=== PATIENT | male | born 1995 | race Caucasian/White ===

== ENCOUNTER → 2021-08-22 16:55 | Outpatient (BNVA) | payer MEDICAID, SELFPAY | PROVIDERS: PCP Family Medicine; Visit Provider Family Medicine | DX: Z00.00 Encounter for general adult medical examination without abnormal findings (principal) | CPT/HCPCS: 80053; 82306; 84443; 85025 ==

== ENCOUNTER 2021-08-30 15:02 | Outpatient (CLI) | payer MEDICAID, SELFPAY ==
[2021-08-30 16:03] LABS: Bilirubin Urine 1+ (Negative); Blood Urine Neg (Negative); Glucose Urine UA Norm (Normal); Ketones Urine 1+ (Negative); Nitrate Urine Negative (Negative); Protein Urine Neg (Negative); Urine Appearance Hazy (CLEAR); Urine Color Amber (Yellow); Urobilinogen Urine Norm (Negative); pH Urine 8 (5-7)
[2021-08-30 16:04] LABS: Add Urine Culture? No; Add Urine Microscopic? YES; Bacteria Urine TRACE /hpf; Leukocyte Esterase Urine Trace (Negative); Mucus Urine 2+ /hpf; RBC Urine 0-4 /hpf (0-2); Squamous Epithelial Cell Urine 0-4 /hpf (0-5); WBC Urine 0-4 /hpf (0-5)
== END 2021-08-30 15:03 | disposition home or self-care (01) ==
PROVIDERS: PCP Family Medicine; Visit Provider Family Medicine
DX: R50.9 Fever, unspecified (principal)
CPT/HCPCS: 81001

== ENCOUNTER 2023-08-08 10:19 | Emergency (ER) | payer MEDICAID, SELFPAY ==
[2023-08-08 10:27] VITALS: BP 102/62; PULSE 67; RESP 14; TEMP 36.6; O2SAT 95; BMI 24.2
[2023-08-08 10:28] VITALS: BP 102/62; PULSE 75; RESP 14; O2SAT 96
--- NOTE | 2023-08-08 10:51 | W.ED.WOUNDLC ---
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 Due to positioning he has developed a pressure ulcer on the right flank they have been treating at home with in conjunction with home health care nurse. He has been present for a couple of months now. It is not healing and was directed to the emergency room for further evaluation today did report a fever at home. Onset (ago): month(s) Associated symptoms: Denies chills or fever(s) Review of Systems Const: Denies: fever(s) or chills Card: Denies: chest pain Resp: Denies: dyspnea GI: Denies: abdominal pain : Denies: dysuria, urinary frequency or urinary urgency Musc: Denies: neck pain or back pain Skin/Breast: Denies: rash PFSH ED PFSH: Social History Smoking and tobacco/nicotine status: never used tobacco/nicotine Alcohol intake: never Substance/Drug Use: never Physical Exam Const: GENERAL APPEARANCE: cooperative and comfortable ORIENTATION/CONSCIOUSNESS: Yes awake HENMT: COMMON NORMALS: normocephalic, atraumatic and hearing grossly normal bilaterally HEAD & SCALP: normocephalic and atraumatic Resp: COMMON NORMALS: normal respiratory effort, No retractions, No use of accessory muscles and clear to auscultation bilaterally AUSCULTATION: clear to auscultation bilaterally Cardio: COMMON NORMALS: regular rate, regular rhythm and No murmurs present (Cardio) RATE: regular rate RHYTHM: regular rhythm GI: COMMON NORMALS: Soft to palpation and No hepatosplenomegaly present AUSCULTATION: Yes normoactive bowel sounds PALPATION: Yes Soft to palpation, No Tenderness to palpation present (GI), No Guarding due to palpation present (GI) and Yes No hepatosplenomegaly present Extremity: COMMON NORMALS: normal to inspection, capillary refill normal, no clubbing, cyanosis or edema, no calf tenderness and no pedal edema Skin: OTHER: Pressure ulcer on right flank between lower ribs and superior iliac crest is tunneling serous drainage at this time. Localized redness. Course Vital Signs: Vital signs: Vital Signs Temperature 97.8 F 08/08/23 10:27 Pulse Rate 83 08/08/23 13:00 Respiratory Rate 14 08/08/23 10:28 Blood Pressure 102/62 08/08/23 10:28 Pulse Oximetry 97 08/08/23 13:00 Oxygen Delivery Me thod Mechanical Ventil ation 08/08/23 13:00 MDM - Wound/Laceration Medical Decision Making Patient does have a pressure ulcer that is developed because of positioning appears to be compression between his lower ribs on the right and his superior pelvic crest. There is no abscess or drainage at this time at some point it may require debridement but is not requiring debridement at this time and there is no abscess on the CT. White count is normal. I did call and discussed with his primary. We will discharge patient home set him up for outpatient wound care clinic return if has further problems. Started on Bactrim for now. Return if has fever. Medical Records I reviewed the patient's medical records. Lab Data I reviewed the patient's lab results. 08/08/23 10:45 08/08/23 10:45 Laboratory Results WBC 6.49 10^3/uL (3.29-11.43) 08/08/23 10:45 RBC 4.30 10^6/uL (3.85-5.65) 08/08/23 10:45 Hgb 13.60 g/dL (11.27-16.99) 08/08/23 10:45 Hct 41.0 % (37-53) 08/08/23 10:45 MCV 95.3 fl (82-101) 08/08/23 10:45 MCH 31.6 pg (27-33) 08/08/23 10:45 MCHC 33.2 g/dL (30-55) 08/08/23 10:45 RDW 13.2 % (12.1-15.1) 08/08/23 10:45 Plt Count 153 10^3/cmm (157-399) L 08/08/23 10:45 MPV 12.4 fL (7.4-10.4) H 08/08/23 10:45 Neut % (Auto) 63.3 % 08/08/23 10:45 Lymph % (Auto) 25.0 % 08/08/23 10:45 [place] % (Auto) 8.6 % 08/08/23 10:45 Eos % (Auto) 2.6 % 08/08/23 10:45 Baso % (Auto) 0.3 % 08/08/23 10:45 Neut # (Auto) 4.11 10^3/uL (1.8-7.7) 08/08/23 10:45 Lymph # (Auto) 1.6 10^3/uL (0.8-4.8) 08/08/23 10:45 [place] # (Auto) 0.6 10^3/uL (0.2-0.9) 08/08/23 10:45 Eos # (Auto) 0.2 10^3/uL (0.0-0.8) 08/08/23 10:45 Baso # (Auto) 0.0 10^3/uL (0.0-0.1) 08/08/23 10:45 Nucleated RBC % (auto) 0 % 08/08/23 10:45 Nucleated RBCs # 0.0 /100WBC 08/08/23 10:45 Sodium 141 mmol/L (136-145) 08/08/23 10:45 Potassium 3.7 mmol/L (3.5-5.1) 08/08/23 10:45 Chloride 108 mmol/L (98-107) H 08/08/23 10:45 Carbon Dioxide 24 mmol/L (22-29) 08/08/23 10:45 Anion Gap 12.7 (5-19) 08/08/23 10:45 BUN 15 mg/dL (6-20) 08/08/23 10:45 Creatinine 0.4 mg/dL (0.7-1.2) L 08/08/23 10:45 GFR Calculation 258.0 mL/min (90-130) H 08/08/23 10:45 Glucose 123 mg/dL (65-115) H 08/08/23 10:45 Calculated Osmolality 294 mOsm/kg (285-295) 08/08/23 10:45 Calcium 9.0 mg/dL (8.5-10.5) 08/08/23 10:45 Total Bilirubin 0.3 mg/dL (0.15-1.2) 08/08/23 10:45 AST 29 U/L (0-40) 08/08/23 10:45 ALT 39 U/L (0-41) 08/08/23 10:45 Alkaline Phosphatase 165 U/L (40-130) H 08/08/23 10:45 Total Protein 6.9 g/dL (6.6-8.7) 08/08/23 10:45 Albumin 3.5 g/dL (3.5-5.2) 08/08/23 10:45 Globulin 3.4 g/dL (1.3-4.6) 08/08/23 10:45 Urine Color Yellow (Yellow) 08/08/23 11:12 Urine Appearance Sl hazy (CLEAR) A 08/08/23 11:12 Urine pH 8 (5-7) H 08/08/23 11:12 Ur Specific [place] 1.010 (1.005-1.030) 08/08/23 11:12 Urine Protein Neg (Negative) 08/08/23 11:12 Urine Glucose (UA) Norm (Normal) 08/08/23 11:12 Urine Ketones Negative (Negative) 08/08/23 11:12 Urine Blood Neg (Negative) 08/08/23 11:12 Urine Nitrate Negative (Negative) 08/08/23 11:12 Urine Bilirubin Neg (Negative) 08/08/23 11:12 Prot Sulfosalicylic Acd Negative (Negative) 08/08/23 11:12 Urine Urobilinogen Norm mg/dL (Negative) 08/08/23 11:12 Ur Leukocyte Esterase Negative (Negative) 08/08/23 11:12 Urine RBC 0-4 /hpf (0-2) H 08/08/23 11:12 Urine WBC 0-4 /hpf (0-5) H 08/08/23 11:12 Ur Squamous Epith Cells 0-4 /hpf (0-5) H 08/08/23 11:12 Amorphous Sediment 3+ /hpf 08/08/23 11:12 Urine Bacteria Trace /hpf (NONE) 08/08/23 11:12 All radiology interpretation(s) finalized by discharge Discharge Plan Discharge Patient Disposition: Home Clinical Impression: Pressure ulcer, Scoliosis, Quadriplegia Condition: Stable Prescriptions: New sulfamethoxazole-trimethoprim 200-40 mg/5 mL suspension 20 ml PO BID 10 Days Qty: 400 0RF No Action cholecalciferol (vitamin D3) 125 mcg/mL (5,000 unit/mL) drops 125 mcg PO DAILY Qty: 59 5RF baclofen 5 mg/5 mL solution 10 mg .ROUTE .COMPLEX Qty: 60 5RF Rx Instructions: 10 mg/ml give 1 ML per G-tube twice daily famotidine 40 mg/5 mL (8 mg/mL) suspension See Rx Instructions .ROUTE .COMPLEX Qty: 150 4RF Dose Instruction: TAKE 2.5ML (20MG) BY MOUTH TWICE DAILY Rx Instructions: TAKE 2.5ML (20MG) BY MOUTH TWICE DAILY cetirizine 1 mg/mL solution See Rx Instructions .ROUTE .COMPLEX Qty: 450 0RF Dose Instruction: TAKE 5MLS BY MOUTH DAILY Rx Instructions: TAKE 5MLS BY MOUTH DAILY bisacodyl 10 mg suppository See Rx Instructions .ROUTE .COMPLEX Qty: 30 5RF Dose Instruction: INSERT RECTALLY EVERY DAY NEEDED FOR CONSTIPATION Rx Instructions: INSERT RECTALLY EVERY DAY NEEDED FOR CONSTIPATION ibuprofen 100 mg/5 mL suspension See Rx Instructions .ROUTE .COMPLEX Qty: 473 1RF Dose Instruction: TAKE 20MLS BY MOUTH EVERY 6 HOURS NEEDED FOR PAIN Rx Instructions: TAKE 20MLS BY MOUTH EVERY 6 HOURS NEEDED FOR PAIN acetaminophen [M-PAP] 160 mg/5 mL liquid 320 mg PO TID PRN (Reason: pain) Qty: 900 2RF clonazepam 0.5 mg tablet,disintegrating See Rx Instructions PO BID Qty: 800 3RF Rx Instructions: 0.1mg/ml suspension give 4ha=766eio in am and 7.1mp=688btr in the pm Discharge Orders: Discharge ED (Routine); Ordered 08/08/23 Ordered By: Tarik Carpio Referrals: Cesia Mcclendon MD [Primary Care Provider] - Discharge Diet: Usual diet Discharge Activity: Resume usual activity Patient Instructions: Opioid Safety, Pain Management Activity Restrictions/Additional Instructions: Case management make arrangements for you to have follow-up appointment with wound care. Recommend you start Bactrim. Coding Level of Care Code ED High Voltage Electrician for Margaret Caro
--- NOTE | 2023-08-08 10:53 | ECG_ITS ---
[facility] Test Date: 2023-08-08 Pat Name: Hal Fontana Department: Room: Gender: Male Shower Room Attendant: : 1995 Requested By: Tarik Guzmán Order Number: [id number] Luis Felipe MD: Regino Flores M.D. Measurements Intervals [place] Rate: 71 P: 37 LA: 140 QRS: 100 QRSD: 88 T: 26 QT: 372 QTc: 406 Interpretive Statements SINUS RHYTHM WITH MARKED SINUS ARRHYTHMIA BORDERLINE RIGHT AXIS DEVIATION [QRS AXIS > 90] NONSPECIFIC T-WAVE ABNORMALITY No previous ECG available for comparison Electronically Signed On 08-08-2023 11:58:03 CDT by Regino Flores M.D. [id number]
--- NOTE | 2023-08-08 11:00 | CT_ITS ---
WS: [id number] CT ABDOMEN PELVIS TECHNIQUE: Contrast-enhanced CT of the abdomen and pelvis with coronal and sagittal reformatted image s. CLINICAL INFORMATION: abd pain COMPARISON: None. DLP: 616.[address] scans at [facility] use at least one of these dose optimization techniques: automated e xposure control; mA and/or kV adjustment per patient size (includes targeted exams where dose is matc hed to clinical indication); or iterative reconstruction. FINDINGS: Gastrostomy tube. Advanced thoracolumbar scoliosis convex LEFT somewhat limits evaluation. Small RIGHT pleural effusion with compressive atelectasis and consolidation in the RIGHT lower lobe w ith air bronchograms. Trace LEFT pleural fluid. Recommend correlation for RIGHT lower lobe pneumonia. Normal liver. Normal portal vein and splenic vein. Adrenal glands are normal. Normal spleen. Small es ophageal hiatal hernia. Air-fluid level in the stomach. Normal abdominal aorta. Adrenal glands are no rmal. No hydronephrosis. Normal renal parenchymal enhancement. Sigmoid constipation. No evidence of h igh-grade small or large bowel obstruction. Diffuse bladder wall thickening. Tiny fat-containing umbilical hernia. Small amount of subcutaneous e alberto in the RIGHT subcutaneous mid lower back soft tissues. No drainable fluid collections. Chronic d ysplasia dislocation RIGHT hip. No other acute findings. IMPRESSION: 1. Small RIGHT pleural effusion with compressive atelectasis and consolidation in the RIGHT lower lo be anteriorly and medially with air bronchograms. Recommend correlation for pneumonia. 2. Gastrostomy tube in place. Air-fluid level in the stomach. 3. Sigmoid constipation. No evidence of high-grade small or large bowel obstruction. 4. Diffuse bladder wall thickening likely due to chronic cystitis. 5. Small amount of edema in the RIGHT mid and lower back soft tissues. No drainable fluid collection s. 6. Chronic RIGHT hip dysplasia and dislocation. 7. No other acute findings.
[2023-08-08 11:04] VITALS: PULSE 70; O2SAT 98
[2023-08-08 11:09] LABS: Basophils % 0.3 %; Eosinophils # 0.2 10^3/uL (0.0-0.8); Eosinophils % 2.6 %; Lymphocytes # 1.6 10^3/uL (0.8-4.8); Mean Corpuscular HGB Conc 33.2 g/dL (30-55); Mean Corpuscular Hemoglobin 31.6 pg (27-33); Mean Corpuscular Volume 95.3 fl (82-101); Mean Platelet Volume 12.4 fL (7.4-10.4); Monocytes # 0.6 10^3/uL (0.2-0.9); Monocytes % 8.6 %; Neutrophils # 4.11 10^3/uL (1.8-7.7); Neutrophils % 63.3 %; Nucleated Red Blood Cells % 0 %; Platelet Count 153 10^3/cmm (157-399); Red Cell Distribution Width 13.2 % (12.1-15.1); White Blood Count 6.49 10^3/uL (3.29-11.43)
[2023-08-08 11:19] LABS: Alanine Aminotransferase 39 U/L (0-41); Albumin Level 3.5 g/dL (3.5-5.2); Alkaline Phosphatase 165 U/L (40-130); Anion Gap 12.7 (5-19); Aspartate Amino Transferase 29 U/L (0-40); Blood Urea Nitrogen 15 mg/dL (6-20); Carbon Dioxide 24 mmol/L (22-29); Chloride 108 mmol/L (98-107); Globulin 3.4 g/dL (1.3-4.6); Glucose 123 mg/dL (65-115); Osmolality Calculated 294 mOsm/kg (285-295); Potassium 3.7 mmol/L (3.5-5.1); Sodium 141 mmol/L (136-145); Total Bilirubin 0.3 mg/dL (0.15-1.2); Total Protein 6.9 g/dL (6.6-8.7)
[2023-08-08 11:32] LABS: Urine Appearance SL Hazy (CLEAR); Urine Color Yellow (Yellow); pH Urine 8 (5-7)
[2023-08-08 11:33] LABS: Add Urine Culture? No; Add Urine Microscopic? YES; Amorphous Sediment Urine 3+ /hpf; Bacteria Urine TRACE /hpf; Bilirubin Urine Neg (Negative); Blood Urine Neg (Negative); Glucose Urine UA Norm (Normal); Ketones Urine Negative (Negative); Leukocyte Esterase Urine Negative (Negative); Nitrate Urine Negative (Negative); Protein Urine Neg (Negative); RBC Urine 0-4 /hpf (0-2); Squamous Epithelial Cell Urine 0-4 /hpf (0-5); Sulfosalicylic Acid Urine Negative (Negative); Urobilinogen Urine Norm (Negative); WBC Urine 0-4 /hpf (0-5)
[2023-08-08] MEDS: iohexol 350 mg/mL 500 mL Btl (per mL) IV (11:40)
[2023-08-08 12:00] VITALS: PULSE 74; O2SAT 99
[2023-08-08 13:00] VITALS: PULSE 83; O2SAT 97
--- NOTE | 2023-08-08 14:08 | DCPLANNER ---
Referral sent to ortho on 08/08/23 clinic to contact patient
== END 2023-08-08 14:35 | disposition home or self-care (01) ==
PROVIDERS: Emergency Provider Family Medicine; PCP Family Medicine
DX: L89.139 Pressure ulcer of right lower back, unspecified stage (principal); M41.9 Scoliosis, unspecified; G82.50 Quadriplegia, unspecified; Z74.01 Bed confinement status
CPT/HCPCS: 36415; 74177; 80053; 81001; 85025; 87040; 93005; 99285; Q9967

== ENCOUNTER → 2023-08-14 08:46 | Outpatient (BNVA) | payer MEDICAID, SELFPAY | PROVIDERS: PCP Family Medicine; Visit Provider Nurse Practitioner Family | DX: I96 Gangrene, not elsewhere classified (principal); L89.892 Pressure ulcer of other site, stage 2 | CPT/HCPCS: 11042; 99213; A6212 ==

== ENCOUNTER → 2023-08-28 08:00 | Outpatient (BNVA) | payer MEDICAID, SELFPAY | PROVIDERS: PCP Family Medicine; Visit Provider Nurse Practitioner Family | DX: I96 Gangrene, not elsewhere classified (principal); L89.892 Pressure ulcer of other site, stage 2; G82.50 Quadriplegia, unspecified | CPT/HCPCS: 11042 ==

== ENCOUNTER → 2023-10-02 07:53 | Outpatient (BNVA) | payer MEDICAID, SELFPAY | PROVIDERS: PCP Family Medicine; Visit Provider Nurse Practitioner Family | DX: I96 Gangrene, not elsewhere classified (principal); L89.892 Pressure ulcer of other site, stage 2 | CPT/HCPCS: 11042; A6220 ==

== ENCOUNTER → 2023-10-30 07:57 | Outpatient (BNVA) | payer MEDICARE, MEDICAID, SELFPAY | PROVIDERS: PCP Family Medicine; Visit Provider Nurse Practitioner Family | DX: L89.892 Pressure ulcer of other site, stage 2 (principal) | CPT/HCPCS: 11042; 11045 ==

== ENCOUNTER → 2023-11-27 07:53 | Outpatient (BNVA) | payer MEDICARE, MEDICAID, SELFPAY | PROVIDERS: PCP Family Medicine; Visit Provider Thoracic Surgery (Cardiothoracic Vascular Surgery) | DX: I96 Gangrene, not elsewhere classified (principal); L89.893 Pressure ulcer of other site, stage 3 | CPT/HCPCS: 97597; A6210; A6220 ==

== ENCOUNTER → 2024-01-01 07:58 | Outpatient (BNVA) | payer MEDICAID, SELFPAY | PROVIDERS: PCP Family Medicine; Visit Provider Thoracic Surgery (Cardiothoracic Vascular Surgery) | DX: L89.893 Pressure ulcer of other site, stage 3 (principal) | CPT/HCPCS: 97597; A6021; A6220; A6252 ==

== ENCOUNTER → 2024-02-05 07:56 | Outpatient (BNVA) | payer MEDICAID, SELFPAY | PROVIDERS: PCP Family Medicine; Visit Provider Thoracic Surgery (Cardiothoracic Vascular Surgery) | DX: L89.893 Pressure ulcer of other site, stage 3 (principal) | CPT/HCPCS: 97597; A6197; A6220; A6251 ==

== ENCOUNTER → 2024-03-11 08:12 | Outpatient (BNVA) | payer MEDICARE, MEDICAID, SELFPAY | PROVIDERS: PCP Family Medicine; Visit Provider Thoracic Surgery (Cardiothoracic Vascular Surgery) | DX: L89.893 Pressure ulcer of other site, stage 3 (principal) | CPT/HCPCS: 97597 ==

== ENCOUNTER → 2024-04-15 07:46 | Outpatient (BNVA) | payer MEDICARE, MEDICAID, SELFPAY | PROVIDERS: PCP Family Medicine; Visit Provider Thoracic Surgery (Cardiothoracic Vascular Surgery) | DX: I96 Gangrene, not elsewhere classified (principal); L89.893 Pressure ulcer of other site, stage 3 | CPT/HCPCS: 97597 ==

== ENCOUNTER → 2024-05-20 07:49 | Outpatient (BNVA) | payer MEDICARE, MEDICAID, SELFPAY | PROVIDERS: PCP Family Medicine; Visit Provider Thoracic Surgery (Cardiothoracic Vascular Surgery) | DX: Z09 Encounter for follow-up examination after completed treatment for conditions other than malignant neoplasm (principal); Z87.2 Personal history of diseases of the skin and subcutaneous tissue ==